=== PATIENT | female | born 1990 | race Caucasian/White ===

== ENCOUNTER 2023-08-23 13:21 | Emergency (ER) | payer BC ==
[2023-08-23] MEDS ORDERED: NA CHLORIDE 0.9% 1,000 ML ONE (13:42)
[2023-08-23 14:04] LABS: Absolute Basophils 0.1 K/uL (0-0.5); Absolute Lymphocytes (CBC) 1.3 K/uL (0.7-4.9); Absolute Monocytes 0.4 K/uL (0.1-1.3); Absolute Neutrophil 6.9 K/uL (1.8-8.0); Basophils % 0.6 % (0-1.3); Eosinophils % 0.5 % (0-4.4); Hematocrit 35.5 % (36.0-45.0); Hemoglobin 11.6 g/dL (12.0-15.0); Lymphocytes % 14.8 % (15.3-44.8); MCH 25.2 pg (27.0-35.0); MCHC 32.8 g/dL (32.0-36.0); MPV 9.2 fL (7.6-11.3); Monocytes % 4.3 % (3.3-12.3); Neutrophils % 79.8 % (41.7-73.7); Platelets 332 thou/uL (152-406); RBC Red Blood Cell Count 4.61 M/uL (3.86-4.86); Red Cell Distribution Width 15.4 % (12.1-15.2)
[2023-08-23 14:09] LABS: PT Prothrombin Time 12.7 SECONDS (9.5-12.5); PTT, Activated Partial Thromb 27.1 SECONDS (24.3-36.9); Protime INR 1.16
--- NOTE | 2023-08-23 14:19 | RAD REPORT ---
EXAM DESCRIPTION: [facility] Single View08/23/2023 1:42 pm CLINICAL HISTORY: [facility] COMPARISON: CHEST PA AND LAT 2 VIEW dated 05/16/2011 TECHNIQUE: Portable AP view of the chest. FINDINGS: The lungs are clear. No pneumothorax or effusion. The cardiomediastinal contours are unre markable. IMPRESSION: No acute cardiopulmonary process.
[2023-08-23 14:25] LABS: ALT/SGPT 24 U/L (13-56); AST/SGOT 12 U/L (15-37); Albumin 3.6 g/dL (3.4-5.0); Albumin/Globulin Ratio 1.1 (1.1-1.8); Alkaline Phosphatase 93 U/L (45-117); Anion Gap 10.1 mEq/L (5.0-15.0); BUN Blood Urea Nitrogen 17 mg/dL (7-18); Bicarbonate 28 mEq/L (21-32); Bilirubin Total 0.4 mg/dL (0.2-1.0); Globulin 3.3 g/dL (2.3-3.5); Glomerular Filtration Rate 119 ml/min (=/>90); Glucose Level 104 mg/dL (74-106); Magnesium 1.9 mg/dL (1.6-2.4); Potassium 3.1 mEq/L (3.5-5.1); Protein, Total 6.9 g/dL (6.4-8.2); Sodium Level 141 mEq/L (136-145)
[2023-08-23 14:26] LABS: Troponin High Sensitivity < 3.0 pg/mL (<58.9)
[2023-08-23] MEDS ORDERED: POTASSIUM CL SA 10 MEQ TAB PO ONE (14:34)
[2023-08-23 16:28] LABS: Specific Gravity 1.019 (1.005-1.030)
[2023-08-23 16:29] LABS: Urine Bacteria <20 /HPF (<20); Urine Culture Reflex Order NOT NEEDED; Urine Mucus 4+ /HPF (None Seen); Urine RBC >50 /HPF (None Seen); Urine WBC <5 /HPF (<5)
[2023-08-23 16:31] LABS: Specific Gravity 1.019 (1.005-1.030); Urine Bilirubin NEGATIVE (Negative); Urine Blood 3+ (OVER) (Negative); Urine Clarity Extremely Turbid (Clear); Urine Color Yellow (Yellow); Urine Glucose NEGATIVE (Negative); Urine Ketones 1+ (Negative); Urine Microscopic Reflex YN NO UMIC; Urine Nitrite NEGATIVE (Negative); Urine Protein 1+ (Negative); Urine Urobilinogen Normal (Normal); Urine pH 6.5 (5.0-7.0)
--- NOTE | 2023-08-23 16:44 | ER ---
Nurse's Notes [facility] Name: Alia Comer Age: 32 yrs Sex: Female : 1990 Arrival Date: 08/23/2023 Time: 13:21 Bed 4 Private MD: Diagnosis: Syncope Near;Vomiting Presentation: 08/22 13:32 Chief complaint: EMS states: pt was at work and had an episode of vomiting and as6 weakness. pt reports she was feeling fine this morning prior to episode. Coronavirus screen: At this time, the client does not indicate any symptoms associated with coronavirus-19. Ebola Screen: No symptoms or risks identified at this time. Initial Sepsis Screen: Does the patient meet any 2 criteria? No. Patient's initial sepsis screen is negative. Does the patient have a suspected source of infection? No. Patient's initial sepsis screen is negative. Risk Assessment: Do you want to hurt yourself or someone else? Patient reports no desire to harm self or others. Onset of symptoms was August 23, 2023. 13:32 Acuity: KIRILL 3 as6 13:32 Method Of Arrival: EMS: [facility] as6 13:34 Care prior to arrival: Medication(s) given: Normal saline infusion, zofran 4 mg, IV as6 initiated. 20 GA, in the left antecubital area. 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 - Infectious Disease History:: Denies. - Social history:: Smoking status: Smoking status: Patient denies any tobacco usage or history of. Screenin:29 [facility] ED Fall Risk Assessment (Adult) History of falling in the last 3 months, as6 including since admission No falls in past 3 months (0 pts) Confusion or Disorientation No (0 pts) Intoxicated or Sedated No (0 pts) Impaired Gait No (0 pts) Mobility Assist Device Used No (0 pt) Altered Elimination No (0 pt) Score/Fall Risk Level 0 - 2 = Low Risk Oriented to surroundings, Maintained a safe environment, Educated pt \T\ family on fall prevention, incl call for assistance when getting out of bed, Assessed \T\ reinforced patient's understanding of fall precautions, Provided non-skid footwear. Abuse screen: Denies threats or abuse. Denies injuries from another. Nutritional screening: No deficits noted. Tuberculosis screening: No symptoms or risk factors identified. Assessment: 13:30 General: Appears in no apparent distress. obese, Behavior is calm, cooperative. Pain: as6 Denies pain. Neuro: Level of Consciousness is awake, alert, obeys commands, Oriented to person, place, time, situation, Reports dizziness, weakness. Cardiovascular: Capillary refill < 3 seconds Patient's skin is warm and dry. Respiratory: Respiratory effort is even, unlabored, Respiratory pattern is regular, symmetrical. GI: Patient currently denies nausea. : No deficits noted. No signs and/or symptoms were reported regarding the genitourinary system. EENT: No deficits noted. No signs and/or symptoms were reported regarding the EENT system. Derm: Skin is pale. 14:30 Reassessment: Patient appears in no apparent distress at this time. Patient and/or as6 family updated on plan of care and expected duration. Pain level reassessed. Patient is alert, oriented x 3, equal unlabored respirations, skin warm/dry/pink. Derm: Skin is pink, warm \T\ dry. 16:22 Reassessment: Patient appears in no apparent distress at this time. Patient and/or as6 family updated on plan of care and expected duration. Pain level reassessed. Patient is alert, oriented x 3, equal unlabored respirations, skin warm/dry/pink. pt reports nausea. 16:58 Reassessment: Patient appears in no apparent distress at this time. Patient and/or rs5 family updated on plan of care and expected duration. Pain level reassessed. Patient is alert, oriented x 3, equal unlabored respirations, skin warm/dry/pink. Patient states feeling better. Patient states symptoms have improved. Vital Signs: 13:30 BP 148 / 90; Pulse 89; Resp 17 S; Temp 98.1(O); Pulse Ox 99% on R/A; Weight 115.21 kg as6 (R); Height 5 ft. 6 in. (R); Pain 0/10; 14:29 BP 133 / 73; Pulse 87; Resp 19 S; Pulse Ox 100% on R/A; as6 16:22 BP 150 / 100; Pulse 91; Resp 15 S; Pulse Ox 100% on R/A; as6 13:30 Body Mass Index 41.00 (115.21 kg, 167.64 cm) as6 13:30 Pain Scale: Adult as6 ED Course: 13:26 Patient arrived in ED. kb 13:26 Annetta Mckee FNP-C [facility]. kb 13:26 Kim Qiu MD is Attending Physician. kb 13:28 Erlin Chicas, NILA is Primary Nurse. as6 13:32 Arm band placed on. as6 13:33 Triage completed. as6 13:44 Chest Single View XRAY In Process Unspecified. EDMS 14:29 Bed in low position. Call light in reach. Side rails up X2. Client placed on continuous as6 cardiac and pulse oximetry monitoring. NIBP monitoring applied. puff ironer on. Warm blanket given. 14:44 No provider procedures requiring assistance completed. rs5 16:59 Provided Education on: . rs5 16:59 IV discontinued, intact, bleeding controlled, No redness/swelling at site. Pressure rs5 dressing applied. Administered Medications: 13:55 Drug: NS 0.9% IV 1000 ml IV at 1000 ml once Route: IV; Rate: 1000 ml; Site: left rs5 antecubital; 16:33 Follow up: Response: No adverse reaction; IV Status: Completed infusion; IV Intake: as6 1000ml 14:41 Drug: Potassium Chloride PO 40 mEq PO once Route: PO; rs5 16:34 Follow up: Response: No adverse reaction as6 16:58 Drug: Ondansetron IVP 4 mg IVP once; over 2 minutes Route: IVP; Site: left antecubital; rs5 Medication: 13:34 VIS not applicable for this client. as6 Intake: 16:33 IV: 1000ml; Total: 1000ml. as6 Outcome: 16:43 Discharge ordered by . kb 16:59 Discharged to home ambulatory, with family, rs5 16:59 Condition: good 16:59 Discharge instructions given to patient, family, Instructed on discharge instructions, follow up and referral plans. medication usage, Demonstrated understanding of instructions, follow-up care, medications, Prescriptions given X 1, 16:59 Patient left the ED. rs5 Signatures: Dispatcher [employer] EDMS Annetta Mckee, IKER MARLEY-Erlin Fonseca, RN RN as6 Isai Piña, RN RN rs5
--- NOTE | 2023-08-23 16:44 | EDPHYS ---
Physician Documentation [facility] Name: Alia Comer Age: 32 yrs Sex: Female : 1990 Arrival Date: 08/23/2023 Time: 13:21 Bed 4 Private MD: ED Physician Kim Qiu HPI: 08/22 14:26 This 32 yrs old Female presents to ER via EMS with complaints of syncope. kb 14:26 Patient is a 32-year-old female who presents for weakness, syncope, nausea and kb vomiting. States she ate lunch around 11 then started feeling weak and nauseous at 1130. States she went to the restroom and sat down and then started vomiting and believes she passed out. States prior to this incident she felt fine had no symptoms.. 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 - Infectious Disease History:: Denies. - Social history:: Smoking status: Smoking status: Patient denies any tobacco usage or history of. ROS: 14:26 Constitutional: As per HPI kb Exam: 13:54 Constitutional: This is a well developed, well nourished patient who is awake, alert, kb and in no acute distress. Head/Face: Normocephalic, atraumatic. ENT: Moist Mucous membranes Cardiovascular: Regular rate Respiratory: Respirations even and unlabored. No increased work of breathing. Talking in full sentences Skin: Warm, dry with normal turgor. Normal color. MS/ Extremity: Pulses equal, no cyanosis. Neurovascular intact. Full, normal range of motion. Neuro: Awake and alert, GCS 15, oriented to person, place, time, and situation. Moves all extremities. Normal gait. 13:54 ECG was reviewed by the Attending Physician. 13:54 Abdomen/GI: Inspection: abdomen appears normal, Bowel sounds: normal, Palpation: soft, mild abdominal tenderness, in the left upper quadrant and left lower quadrant, Vital Signs: 13:30 BP 148 / 90; Pulse 89; Resp 17 S; Temp 98.1(O); Pulse Ox 99% on R/A; Weight 115.21 kg as6 (R); Height 5 ft. 6 in. (R); Pain 0/10; 14:29 BP 133 / 73; Pulse 87; Resp 19 S; Pulse Ox 100% on R/A; as6 16:22 BP 150 / 100; Pulse 91; Resp 15 S; Pulse Ox 100% on R/A; as6 13:30 Body Mass Index 41.00 (115.21 kg, 167.64 cm) as6 13:30 Pain Scale: Adult as6 MDM: 13:26 Patient medically screened. kb 16:42 Differential Diagnosis: cardiac arrhythmia, idiopathic syncope, vasovagal episode. Data kb reviewed: vital signs, nurses notes. Historians other than the Patient: EMS: [facility]. Counseling: I had a detailed discussion with the patient and/or guardian regarding the historical points, exam findings, and any diagnostic results supporting the discharge/admit diagnosis, lab results, radiology results, the need for outpatient follow up, a family practitioner, to return to the emergency department if symptoms worsen or persist or if there are any questions or concerns that arise at home. ED course: Pt is feeling better. Pt in agreement with outpatient followup and will return as needed. 08/22 13:26 Order name: CBC with Diff; Complete Time: 14:10 kb 08/22 13:26 Order name: Magnesium; Complete Time: 14: kb 08/22 13:26 Order name: Test, Urine; Complete Time: 16:38 kb 08/22 13:26 Order name: Protime (+inr); Complete Time: 14:10 kb 08/22 13:26 Order name: Ptt, Activated; Complete Time: 14:10 kb 08/22 13:26 Order name: Troponin High Sensitivity; Complete Time: 14:27 kb 08/22 13:26 Order name: Urinalysis w/ reflexes; Complete Time: 16:38 kb 08/22 13:26 Order name: CMP; Complete Time: 14:27 kb 08/22 13:26 Order name: Chest Single View XRAY; Complete Time: 14:24 kb 08/22 13:26 Order name: EKG; Complete Time: 13:27 kb 08/22 13:26 Order name: Cardiac monitoring; Complete Time: 13:55 kb 08/22 13:26 Order name: EKG - Nurse/Tech; Complete Time: 13:55 kb 08/22 13:26 Order name: IV Saline Lock; Complete Time: 13:33 kb 08/22 13:26 Order name: Labs collected and sent; Complete Time: 13:55 kb 08/22 13:26 Order name: NPO; Complete Time: 13:33 kb 08/22 13:26 Order name: O2 Per Protocol; Complete Time: 13:33 kb 08/22 13:26 Order name: O2 Sat Monitoring; Complete Time: 13:33 kb EC:54 Rate is 86 beats/min. Rhythm is regular. QRS [place] is Normal. ID interval is normal at kb 162 msec. QRS interval is normal at 112 msec. QT interval is normal at 473 msec. Administered Medications: 13:55 Drug: NS 0.9% IV 1000 ml IV at 1000 ml once Route: IV; Rate: 1000 ml; Site: left rs5 antecubital; 16:33 Follow up: Response: No adverse reaction; IV Status: Completed infusion; IV Intake: as6 1000ml 14:41 Drug: Potassium Chloride PO 40 mEq PO once Route: PO; rs5 16:34 Follow up: Response: No adverse reaction as6 16:58 Drug: Ondansetron IVP 4 mg IVP once; over 2 minutes Route: IVP; Site: left antecubital; rs5 Disposition Summary: 08/23/23 16:43 Discharge Ordered Notes: Location: Home Condition: Stable kb Diagnosis - Syncope Near kb - Vomiting kb Followup: kb - With: Emergency Department - When: As needed - Reason: Worsening of condition Followup: kb - With: Private Physician - When: 2 - 3 days - Reason: Recheck today's complaints, Continuance of care, Re-evaluation by your physician Discharge Instructions: - Discharge Summary Sheet kb - Near-Syncope, [id number] kb - Syncope, [id number] kb Forms: - Medication Reconciliation Form kb - Antibiotic Education kb - Prescription Opioid Use kb - Patient Portal Instructions kb - Leadership Thank You Letter kb Prescriptions: - ondansetron 4 mg Oral Tablet,disintegrating - take 1 tablet ORAL route every 6 hours As needed; 12 tablet; Refills: 0, kb Product Selection Permitted Signatures: Dispatcher [employer] Annetta Coppola, DONELL-C Erlin Randall RN RN as6 Isai Piña, RN RN rs5
[2023-08-23] MEDS ORDERED: ONDANSETRON 4 MG/2 ML VIAL ONE (16:50)
[2023-08-23 17:49] VITALS: BP 150/100; TEMP 98.1; O2SAT 100
== END 2023-08-23 16:59 | disposition home or self-care (01) ==
LOC: ER 13:21
DX: R55 Syncope and collapse (principal); R11.10 Vomiting, unspecified; I10 Essential (primary) hypertension
CPT/HCPCS: 85025; 36415; 83735; 81025; 85610; 85730; 81003; 84484; 80053; 71045; J2405; J7030; 93005

== ENCOUNTER 2024-01-05 13:55 | Emergency (ER) | payer BC ==
[2024-01-05 16:06] LABS: Absolute Basophils 0.1 K/uL (0-0.5); Absolute Eosinophils 0.1 K/uL (0-0.5); Absolute Lymphocytes (CBC) 1.8 K/uL (0.7-4.9); Absolute Monocytes 0.3 K/uL (0.1-1.3); Absolute Neutrophil 4.1 K/uL (1.8-8.0); Basophils % 1.2 % (0-1.3); Eosinophils % 0.9 % (0-4.4); Hematocrit 38.1 % (36.0-45.0); Hemoglobin 12.7 g/dL (12.0-15.0); Lymphocytes % 28.3 % (15.3-44.8); MCH 26.6 pg (27.0-35.0); MCHC 33.4 g/dL (32.0-36.0); MCV 79.8 fL (80-100); MPV 9.3 fL (7.6-11.3); Monocytes % 4.2 % (3.3-12.3); Neutrophils % 65.4 % (41.7-73.7); Nucleated Red Blood Cells % 0.1 % (0-0); Platelets 292 thou/uL (152-406); RBC Red Blood Cell Count 4.78 M/uL (3.86-4.86); Red Cell Distribution Width 14.4 % (12.1-15.2)
--- NOTE | 2024-01-05 16:18 | RAD REPORT ---
[facility] CLINICAL HISTORY: CHEST PAIN COMPARISON: Chest Single View dated 08/23/2023; CHEST PA AND LAT 2 VIEW dated 05/16/2011 TECHNIQUE: Portable AP view of the chest. FINDINGS: The lungs are clear. No pneumothorax or effusion. The cardiomediastinal contours are unre markable. IMPRESSION: No acute cardiopulmonary process.
[2024-01-05 16:31] LABS: ALT/SGPT 27 U/L (13-56); AST/SGOT 14 U/L (15-37); Albumin/Globulin Ratio 1.3 (1.1-1.8); Alkaline Phosphatase 76 U/L (45-117); Anion Gap 7.3 mEq/L (5.0-15.0); BUN Blood Urea Nitrogen 19 mg/dL (7-18); Bicarbonate 29 mEq/L (21-32); Bilirubin Total 0.5 mg/dL (0.2-1.0); Globulin 3.2 g/dL (2.3-3.5); Glomerular Filtration Rate 122 ml/min (=/>90); Glucose Level 88 mg/dL (74-106); Magnesium 2.1 mg/dL (1.6-2.4); NT PRO-BNP 177 pg/mL (<125); Potassium 3.3 mEq/L (3.5-5.1); Protein, Total 7.2 g/dL (6.4-8.2); Sodium Level 141 mEq/L (136-145); Troponin High Sensitivity 3.7 pg/mL (<58.9)
[2024-01-05 16:32] LABS: Bilirubin Direct < 0.2 mg/dL (0-0.2); Bilirubin Indirect, Calculated 0.3 mg/dL (0.2-0.8)
[2024-01-05 16:39] LABS: Specific Gravity 1.029 (1.005-1.030); Sqamous Epithelial <5 /HPF (None Seen); Urine Bacteria None Seen /HPF (<20); Urine Micro Reflex YN NO BILL MICROSCOPIC; Urine Mucus Slight /HPF (None Seen); Urine RBC 21-50 /HPF (None Seen); Urine WBC None Seen /HPF (<5)
[2024-01-05 16:40] LABS: Specific Gravity 1.029 (1.005-1.030); Urine Bilirubin NEGATIVE (Negative); Urine Blood 3+ (Negative); Urine Clarity Clear (Clear); Urine Color Yellow (Yellow); Urine Glucose NEGATIVE (Negative); Urine Ketones TRACE (Negative); Urine Nitrite NEGATIVE (Negative); Urine Protein TRACE (Negative); Urine Urobilinogen Normal (Normal)
[2024-01-05] MEDS ORDERED: NA CHLORIDE 0.9% 1,000 ML ONE (16:54)
[2024-01-05] MEDS ORDERED: KETOROLAC 30 MG/ML INJ ONE (16:54)
[2024-01-05] MEDS ORDERED: POTASSIUM 25 MEQ EFFERV TAB ONE (16:54)
--- NOTE | 2024-01-05 17:46 | ER ---
Nurse's Notes [facility] Name: Alia Comer Age: 33 yrs Sex: Female : 1990 Arrival Date: 01/05/2024 Time: 13:55 Bed 15 Private MD: Diagnosis: Chest pain, unspecified;Strain of muscle and tendon of front wall of thorax, initial encounter Presentation: 01/04 14:10 Chief complaint: Patient states: Chest pain while folding clothes around 1245 today. ld1 Coronavirus screen: At this time, the client does not indicate any symptoms associated with coronavirus-19. Ebola Screen: No symptoms or risks identified at this time. Initial Sepsis Screen: Does the patient meet any 2 criteria? No. Patient's initial sepsis screen is negative. Does the patient have a suspected source of infection? No. Patient's initial sepsis screen is negative. Risk Assessment: Do you want to hurt yourself or someone else? Patient reports no desire to harm self or others. Onset of symptoms was January 05, 2024 at 14:11. 14:10 Method Of Arrival: Ambulatory ld1 14:10 Acuity: KIRILL 3 ld1 Triage Assessment: 14:11 General: Appears in no apparent distress. comfortable, Behavior is calm, cooperative, ld1 appropriate for age. Pain: Complains of pain in chest Pain does not radiate. Pain currently is 7 out of 10 on a pain scale. Quality of pain is described as throbbing, Pain began suddenly, Is continuous. EENT: No signs and/or symptoms were reported regarding the EENT system. Neuro: Level of Consciousness is awake, alert, obeys commands, Oriented to person, place, time, situation, Appropriate for age. Cardiovascular: Capillary refill < 3 seconds Patient's skin is warm and dry. Respiratory: Airway is patent Respiratory effort is even, unlabored. GI: Abdomen is round non-distended. : No signs and/or symptoms were reported regarding the genitourinary system. Derm: No signs and/or symptoms reported regarding the dermatologic system. Musculoskeletal: No signs and/or symptoms reported regarding the musculoskeletal system. 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 - Infectious Disease History:: Denies. - Social history:: Smoking status: Patient denies any tobacco usage or history of. Patient/guardian denies using alcohol. Screenin:30 [facility] ED Fall Risk Assessment (Adult) History of falling in the last 3 months, kj2 including since admission No falls in past 3 months (0 pts) Confusion or Disorientation No (0 pts) Intoxicated or Sedated No (0 pts) Impaired Gait No (0 pts) Mobility Assist Device Used No (0 pt) Altered Elimination No (0 pt) Score/Fall Risk Level 0 - 2 = Low Risk Maintained a safe environment, Educated pt \T\ family on fall prevention, incl call for assistance when getting out of bed, Hourly rounding (assess needs \T\ fall precautionary measures) done. Abuse screen: Denies threats or abuse. Denies injuries from another. Nutritional screening: No deficits noted. 18:11 Tuberculosis screening: No symptoms or risk factors identified. kj2 Assessment: 15:45 General: Appears in no apparent distress. Behavior is calm, cooperative. Pain: kj2 Complains of pain in chest Pain currently is 3 out of 10 on a pain scale. Neuro: Level of Consciousness is awake, alert, obeys commands, Oriented to person, place, time. Cardiovascular: Patient's skin is warm and dry. Respiratory: Airway is patent Respiratory effort is even, unlabored. GI: Abdomen is. : No deficits noted. Vital Signs: 14:10 Pulse 81; Resp 18; Temp 97.5(TE); Pulse Ox 99% on R/A; Weight 104.78 kg; Height 5 ft. 7 ld1 in. ; Pain 5/10; 14:15 BP 166 / 104; ld1 16:15 BP 172 / 105; Pulse 78; Resp 18; Pulse Ox 100% on R/A; kj2 16:15 BP 154 / 137; Pulse 79; Resp 18; Pulse Ox 100% on R/A; kj2 17:41 BP 144 / 88; Pulse 67; Resp 16; Pulse Ox 100% on R/A; cm10 18:04 BP 144 / 88; Pulse 60; Resp 18; Temp 98; Pulse Ox 100% on R/A; kj2 14:10 Body Mass Index 36.18 (104.78 kg, 170.18 cm) ld1 14:10 Pain Scale: Adult ld1 ED Course: 13:58 Patient arrived in ED. ra3 13:59 Tri De Anda PA-C is PHCP. sb4 13:59 Solo Johns MD is Attending Physician. sb4 14:11 Triage completed. ld1 14:11 Arm band placed on right wrist. ld1 14:52 XRAY Chest (1 view) In Process Unspecified. EDMS 15:35 Gabriela Jennings, RN is Primary Nurse. kj2 15:52 Inserted saline lock: 20 gauge in right antecubital area, using aseptic technique. oh1 Blood collected. Flushed with 10 mL NS. 15:53 Initial lab(s) drawn, by me, sent to lab. oh1 18:11 No provider procedures requiring assistance completed. Patient maintains SpO2 kj2 saturation greater than 95% on room air. 18:12 Patient has correct armband on for positive identification. Bed in low position. Call kj2 light in reach. Provided Education on: call light. Client placed on continuous cardiac and pulse oximetry monitoring. NIBP monitoring applied. 18:14 IV discontinued, intact, bleeding controlled, No redness/swelling at site. Pressure kj2 dressing applied. Administered Medications: 16:45 Drug: Potassium PO Effervescent Tablet 25 mEq PO once; dissolve in 4 ounces of water or kj2 juice Route: PO; 18:12 Follow up: Response: No adverse reaction kj2 16:50 Drug: Ketorolac IVP 30 mg IVP once Route: IVP; Site: Other; kj2 17:30 Follow up: Response: No adverse reaction; Pain is decreased kj2 16:55 Drug: NS 0.9% IV 1000 ml IV at 1 bolus Per protocol; 1000 mL bolus Route: IV; Rate: 1 kj2 bolus; Site: Other; 18:13 Follow up: IV Status: Completed infusion; IV Intake: 1000ml kj2 17:42 Not Given (BP decreasedd): clonidine0.1 mg PO once cm10 Medication: 18:11 VIS not applicable for this client. kj2 Intake: 18:13 IV: 1000ml; Total: 1000ml. kj2 Outcome: 17:45 Discharge ordered by . sb4 18:14 Discharged to home ambulatory, kj2 18:14 Condition: stable 18:14 Discharge instructions given to patient, Instructed on discharge instructions, follow up and referral plans. Demonstrated understanding of instructions, follow-up care, 18:25 Patient left the ED. kj2 Signatures: Dispatcher [employer] EDMS Abril Choe, RN RN ld1 Tri De Anda, PABrady PABrady hernández4 Kaur Keith RN RN cm10 Izabela Orantes ra3 Gabriela Jennings RN RN kj2 Nettie Alvarez il1
--- NOTE | 2024-01-05 17:46 | EDPHYS ---
Physician Documentation [facility] Name: Alia Comer Age: 33 yrs Sex: Female : 1990 Arrival Date: 01/05/2024 Time: 13:55 Bed 15 Private MD: ED Physician Solo Johns HPI: 01/04 14:18 This 33 yrs old Female presents to ER via Ambulatory with complaints of Chest Pain. sb4 14:18 The patient or guardian reports chest pain that is located primarily in the anterior sb4 chest wall, right. The pain does not radiate. Associated signs and symptoms: Pertinent positives: lightheadedness, nausea. The chest pain is described as sharp. Modifying factors: The symptoms are alleviated by remaining still, the symptoms are aggravated by deep breath, movement, twisting torso. The patient has not experienced similar symptoms in the past. The patient has not recently seen a physician. CVIR TECH: 18:14 LMP N/A - Hysterectomy, Not kj2 Historical: - Allergies: 14:11 No Known Allergies; ld1 - PMHx: 14:11 Hypertensive disorder; ld1 - PSHx: 14:11 section; Appendectomy; leg; toe; ld1 - Immunization history:: Adult Immunizations up to date. - Infectious Disease History:: Denies. - Social history:: Smoking status: Patient denies any tobacco usage or history of. Patient/guardian denies using alcohol. ROS: 14:19 Constitutional: Negative for fever, chills, and weight loss, sb4 14:19 Cardiovascular: Positive for chest pain, 14:19 All other systems are negative, Exam: 14:19 Constitutional: This is a well developed, well nourished patient who is awake, alert, sb4 and in no acute distress. Head/Face: Normocephalic, atraumatic. Eyes: Extra-ocular motions intact. Periorbital areas with no swelling, redness, or edema. ENT: Mucous membranes moist. Cardiovascular: Regular rate and rhythm with a normal S1 and S2. Respiratory: Lungs have equal breath sounds bilaterally, clear to auscultation and percussion. No rales, rhonchi or wheezes noted. No increased work of breathing, no retractions or nasal flaring. Abdomen/GI: Soft, non-tender, no distension. Skin: Warm, dry with normal turgor. Normal color with no rashes, no lesions, and no evidence of cellulitis. MS/ Extremity: Pulses equal, no cyanosis. Neurovascular intact. Full, normal range of motion. Neuro: Awake and alert, GCS 15, oriented to person, place, time, and situation. Motor strength 5/5 in all extremities. Sensory grossly intact. Vital Signs: 14:10 Pulse 81; Resp 18; Temp 97.5(TE); Pulse Ox 99% on R/A; Weight 104.78 kg; Height 5 ft. 7 ld1 in. ; Pain 5/10; 14:15 BP 166 / 104; ld1 16:15 BP 172 / 105; Pulse 78; Resp 18; Pulse Ox 100% on R/A; kj2 16:15 BP 154 / 137; Pulse 79; Resp 18; Pulse Ox 100% on R/A; kj2 17:41 BP 144 / 88; Pulse 67; Resp 16; Pulse Ox 100% on R/A; cm10 18:04 BP 144 / 88; Pulse 60; Resp 18; Temp 98; Pulse Ox 100% on R/A; kj2 14:10 Body Mass Index 36.18 (104.78 kg, 170.18 cm) ld1 14:10 Pain Scale: Adult ld1 MDM: 14:07 Patient medically screened. sb4 16:56 ECG:. Data reviewed: vital signs, nurses notes, lab test result(s), EKG, radiologic sb4 studies, and as a result, I will discharge patient. Scoring Tools HEART Score: History: ECG: Age: Risk Factors: 1 or 2 risk factors (1), Troponin: Total Score = 1. Counseling: I had a detailed discussion with the patient and/or guardian regarding the historical points, exam findings, and any diagnostic results supporting the discharge/admit diagnosis, the presence of at least one elevated blood pressure reading (>120/80) during this emergency department visit, lab results, radiology results, the need for outpatient follow up, a build manager, to return to the emergency department if symptoms worsen or persist or if there are any questions or concerns that arise at home. Special discussion: Based on the patient's history, exam, and Dx evaluation, there is no indication for emergent intervention or inpatient Tx. It is understood by the patient/guardian that if the Sx's persist or worsen they need to return immediately for re-evaluation. 01/04 14:18 Order name: Basic Metabolic Panel; Complete Time: 16:37 sb4 01/04 14:18 Order name: CBC with Diff; Complete Time: 16:08 sb4 01/04 14:18 Order name: LFT's; Complete Time: 16:37 sb4 01/04 14:18 Order name: Magnesium; Complete Time: 16:37 sb4 01/04 14:18 Order name: NT PRO-BNP; Complete Time: 16:37 sb4 01/04 14:18 Order name: Troponin HS; Complete Time: 16:37 sb4 01/04 14:18 Order name: Test, Urine; Complete Time: 16:41 sb4 01/04 14:18 Order name: UAM; Complete Time: 16:41 sb4 01/04 14:19 Order name: TSH; Complete Time: 16:37 sb4 01/04 14:18 Order name: XRAY Chest (1 view); Complete Time: 16:19 sb4 01/04 14:18 Order name: EKG; Complete Time: 14:19 sb4 01/04 14:18 Order name: Cardiac monitoring; Complete Time: 17:15 sb4 01/04 14:18 Order name: EKG - Nurse/Tech; Complete Time: 17:15 sb4 01/04 14:18 Order name: IV Saline Lock; Complete Time: 17:15 sb4 01/04 14:18 Order name: Labs collected and sent; Complete Time: 17:15 sb4 01/04 14:18 Order name: O2 Per Protocol; Complete Time: 17:15 sb4 01/04 14:18 Order name: O2 Sat Monitoring; Complete Time: 17:15 sb4 EC:30 Rate is 56 beats/min. Rhythm is regular, Sinus bradycardia. DC interval is normal at sb4 138 msec. QRS interval is normal at 104 msec. QT interval is normal at 466 msec. No Q waves. T waves are Normal. No ST changes noted. Clinical impression: No evidence of ischemia. Interpreted by me. Reviewed by me. Administered Medications: 16:45 Drug: Potassium PO Effervescent Tablet 25 mEq PO once; dissolve in 4 ounces of water or kj2 juice Route: PO; 18:12 Follow up: Response: No adverse reaction kj2 16:50 Drug: Ketorolac IVP 30 mg IVP once Route: IVP; Site: Other; kj2 17:30 Follow up: Response: No adverse reaction; Pain is decreased kj2 16:55 Drug: NS 0.9% IV 1000 ml IV at 1 bolus Per protocol; 1000 mL bolus Route: IV; Rate: 1 kj2 bolus; Site: Other; 18:13 Follow up: IV Status: Completed infusion; IV Intake: 1000ml kj2 17:42 Not Given (BP decreasedd): clonidine0.1 mg PO once cm10 Disposition Summary: 01/05/24 17:45 Discharge Ordered Notes: Location: Home sb4 Problem: new sb4 Symptoms: have improved sb4 Condition: Stable sb4 Diagnosis - Chest pain, unspecified sb4 - Strain of muscle and tendon of front wall of thorax, initial encounter sb4 Followup: sb4 - With: Emergency Department - When: As needed - Reason: Trouble breathing, Worsening of condition Discharge Instructions: - Discharge Summary Sheet sb4 - Nonspecific Chest Pain, Adult, [id number] sb4 - Hypertension, Adult, [id number]-[id number] sb4 - Muscle Strain, Obio-sv-[id number] sb4 Forms: - Patient Portal Instructions sb4 - Leadership Thank You Letter sb4 Addendum: 01/13/2024 15:35 Co-signature as Attending Physician, Solo Johns MD I agree with the assessment and c hyatt plan of care. Signatures: Dispatcher [employer] Solo aDvalos MD MD cha Sims, Lauren, RN RN [email or web address] Tri De Anda, PAGraciaC PA-C sb4 Gabriela Jennings RN RN kj2 Kaur Keith RN cm10
[2024-01-05 18:56] VITALS: O2SAT 100
[2024-01-05 18:58] VITALS: BP 144/88
[2024-01-05 18:59] VITALS: TEMP 98
--- NOTE | 2024-01-08 17:08 | EKG ---
Test Date: 2024-01-05 Test Time: 16:12:35 [employer]: OPAL MEASUREMENT RESULTS: Intervals: Rate: 56 MD: 138 QRSD: 104 QT: 466 QTc: 449 [place]: P: 78 MD: 138 QRS: 75 T: 73 INTERPRETIVE STATEMENTS: Sinus bradycardia Voltage criteria for left ventricular hypertrophy Abnormal ECG Compared to ECG 01/05/2024 15:38:53 Left ventricular hypertrophy now present Sinus rhythm no longer present ST (T wave) deviation no longer present Electronically Signed On 01-08-24 17:00:55 CDT by Abhi Rees
--- NOTE | 2024-01-08 17:08 | EKG ---
Test Date: 2024-01-05 Test Time: 15:38:53 [id number] Operator: OPAL MEASUREMENT RESULTS: Intervals: Rate: 71 MN: 154 QRSD: 108 QT: 404 QTc: 439 [place]: P: -15 MN: 154 QRS: 67 T: 48 INTERPRETIVE STATEMENTS: Normal sinus rhythm Nonspecific ST and T wave abnormality Abnormal ECG Compared to ECG 08/23/2023 13:52:23 ST (T wave) deviation now present T-wave abnormality no longer present Prolonged QT interval no longer present Electronically Signed On 01-08-24 17:00:56 CDT by Abhi Rees
== END 2024-01-05 18:25 | disposition home or self-care (01) ==
LOC: ER 13:55
DX: S29.011A Strain of muscle and tendon of front wall of thorax, initial encounter (principal); I10 Essential (primary) hypertension
CPT/HCPCS: 96361; 93005 ×2; 85025; 81001; 80048; 36415; 83735; 81025; 80076; 84443; 84484; 83880; 71045; 96374; 99284; J7030